=== PATIENT | female | born 1965 | race African-American/Black ===

== ENCOUNTER 2017-09-01 01:03 | Emergency (ER) | payer MEDICARE, MEDICAID ==
[2017-09-01 04:44] VITALS: BP 116/64
== END 2017-09-01 04:30 | disposition home or self-care (01) ==
LOC: ER 01:03
DX: S60.562A Insect bite (nonvenomous) of left hand, initial encounter (principal); L03.90 Cellulitis, unspecified; J45.909 Unspecified asthma, uncomplicated; F17.200 Nicotine dependence, unspecified, uncomplicated; Z88.0 Allergy status to penicillin; W57.XXXA Bitten or stung by nonvenomous insect and other nonvenomous arthropods, initial encounter; Y93.89 Activity, other specified; Y92.89 Other specified places as the place of occurrence of the external cause; Y99.8 Other external cause status
CPT/HCPCS: 99283